=== PATIENT | female | born 1935 | race Caucasian/White ===

== ENCOUNTER 2022-01-31 17:37 | Observation (INO) | payer MEDICARE, BC ==
[2022-01-31] VITALS (11 sets, daily range): BP systolic 132–193; BP diastolic 75–94
[~2022-01-31] VITALS: Ht 160 cm; Wt 59.1 kg
[~2022-01-31 17:37] MED LIST: CALCIUM 601 PO; CHOLECALCIFEROL PO; CRESTOR10 MG PO; DIOVAN HC2 PO; EQ ASPIRIN LOW81 MG; ESTRACE0.1 MG/GM VA; FLONASE NASAL50 MCG; HYDROCHLORO25 MG/TAB PO; K-TAB20 MEQ; MUCINEX600 MG PO; PRILOSEC20 MG PO; TESSALON PER100 MG PO; ZINC PO; [UNRECOGNIZED DRUG - OTHER] PO
[2022-01-31] MEDS ORDERED: COQ10100 MG PO (18:34)
[2022-01-31 18:41] LABS: HEMATOCRIT 35.8 % (37.0-47.0); HEMOGLOBIN 12.1 g/dl (12.0-16.0); IMMATURE GRANULOCYTES 1.5 % (0.0-5.0); MEAN CORPUSCULAR HGB 28.1 pG CALC (26.0-32.0); MEAN CORPUSCULAR HGB CONC 33.8 g/dL CAL (32.0-36.0); RED BLOOD COUNT 4.31 mill/uL (4.20-5.60); RED CELL DISTRI WIDTH 15.3 % (11.5-15.5)
[2022-01-31 18:41] LABS: URINE BILIRUBIN - DIPSTICK NEGATIVE (NEGATIVE); URINE BLOOD DIPSTICK MODERATE (NEGATIVE); URINE COLOR YELLOW; URINE GLUCOSE - DIPSTICK NEGATIVE (NEGATIVE); URINE KETONE NEGATIVE (NEGATIVE); URINE LEUK ESTERASE NEGATIVE (NEGATIVE); URINE PH 5.5 (4.5-8.0); URINE PROTEIN - DIPSTICK NEGATIVE (NEG-TRACE); URINE SPECIFIC GRAVITY 1.025; URINE UROBILINOGEN - DIPSTICK 0.2 E.U./dL (0.2)
[2022-01-31 18:47] LABS: URINE NITRITE - DIPSTICK NEGATIVE (Negative)
[2022-01-31 18:55] LABS: URINE WBC 0-2 WBC/hpf (0-5)
[2022-01-31 18:57] LABS: MANUAL DIFFERENTIAL YES; MEAN CELL VOLUME 83.1 fL CALC (80.0-100.0); PLATELET COUNT 286 thou/uL (130-400)
[2022-01-31 18:58] LABS: BILIRUBIN, TOTAL 0.5 mg/dL (0.0-1.4); CREATININE 1.9 mg/dL (0.5-1.0); POTASSIUM 3.5 mmol/l (3.5-5.1); TOTAL PROTEIN 5.9 g/dL (6.3-8.2)
[2022-01-31 19:02] LABS: ALBUMIN 3.3 g/dL (3.2-5.0)
[2022-01-31 19:14] LABS: BAND 2 % (0-8)
[2022-02-01 00:09] VITALS: BP 149/70
[2022-02-01 04:22] VITALS: BP 133/63
[2022-02-01 06:28] LABS: BILIRUBIN, TOTAL 0.4 mg/dL (0.0-1.4); CREATININE 1.6 mg/dL (0.5-1.0); HEMATOCRIT 33.4 % (37.0-47.0); HEMOGLOBIN 11.2 g/dl (12.0-16.0); IMMATURE GRANULOCYTES 1.6 % (0.0-5.0); MAGNESIUM 1.7 mg/dL (1.6-2.3); MEAN CORPUSCULAR HGB 28.5 pG CALC (26.0-32.0); MEAN CORPUSCULAR HGB CONC 33.5 g/dL CAL (32.0-36.0); NEUT# 14.48 thou/uL (2.00-7.15); POTASSIUM 3.6 mmol/l (3.5-5.1); RED BLOOD COUNT 3.93 mill/uL (4.20-5.60); RED CELL DISTRI WIDTH 15.5 % (11.5-15.5); TOTAL PROTEIN 4.8 g/dL (6.3-8.2)
[2022-02-01 06:29] LABS: ALBUMIN 2.6 g/dL (3.2-5.0)
[2022-02-01 07:34] VITALS: BP 138/66
[2022-02-01 08:53] LABS: INTERNATIONAL NORMALIZED RATIO 1.1 RATIO (0.7-1.3); PROTHROMBIN TIME 10.7 SECONDS (9.0-12.5)
[2022-02-01 08:57] VITALS: BP 138/66
[2022-02-01 11:42] VITALS: BP 153/75
[2022-02-01 12:12] VITALS: BP 153/75
[2022-02-01] MEDS ORDERED: LEVAQUIN750 M1 PO (12:53)
== END 2022-02-01 15:00 | disposition home or self-care (01) ==
LOC: ED 17:37 → ED-I 19:00 → ED 19:25 → MS2 19:26
PROVIDERS: Nurse Practitioner; Nurse Practitioner Adult Health; ADMIT Internal Medicine; ATTEND Internal Medicine
PROC: 0T9B70Z Drainage of Bladder with Drainage Device, Via Natural or Artificial Opening (ICD-10-PCS; principal; 2022-01-31)
PROC: 0W9B3ZZ Drainage of Left Pleural Cavity, Percutaneous Approach (ICD-10-PCS; 2022-02-01)
PROC: BB4BZZZ Ultrasonography of Pleura (ICD-10-PCS; 2022-02-01)
DX: R33.9 Retention of urine, unspecified (principal); J18.9 Pneumonia, unspecified organism; J91.8 Pleural effusion in other conditions classified elsewhere; N17.9 Acute kidney failure, unspecified; N39.0 Urinary tract infection, site not specified; C80.0 Disseminated malignant neoplasm, unspecified; I10 Essential (primary) hypertension; K21.9 Gastro-esophageal reflux disease without esophagitis; I25.10 Atherosclerotic heart disease of native coronary artery without angina pectoris; Z98.890 Other specified postprocedural states; Z20.822 Contact with and (suspected) exposure to COVID-19

== ENCOUNTER 2022-02-03 18:00 | Emergency (ER) | payer MEDICARE, BC ==
[~2022-02-03] VITALS: Ht 160 cm; Wt 73.0 kg
[~2022-02-03 18:00] MED LIST changes: +COQ10100 MG PO; +LEVAQUIN750 M1 PO
[2022-02-03 19:00] VITALS: BP 140/65
--- NOTE | 2022-02-06 11:35 | NUR ---
Pneumonia post discharge follow up call completed today, 02/06/22. Pt. states she is doing well with the exception of her need for urinary catheter. No fever, chills, or SOB. Pt was very complimentary of staff at [facility]. stating her care was simply stellar! She has appt. to see her dr tomorrow. No needs or concerns expressed at this time.
== END 2022-02-03 19:00 | disposition home or self-care (01) ==
LOC: ED 18:00
PROC: 0T9B70Z Drainage of Bladder with Drainage Device, Via Natural or Artificial Opening (ICD-10-PCS; principal; 2022-02-03)
DX: R33.9 Retention of urine, unspecified (principal); I10 Essential (primary) hypertension; K21.9 Gastro-esophageal reflux disease without esophagitis; I25.10 Atherosclerotic heart disease of native coronary artery without angina pectoris; Z85.9 Personal history of malignant neoplasm, unspecified; Z92.3 Personal history of irradiation